=== PATIENT | female | born 1955 | race Caucasian/White ===

== ENCOUNTER 2025-06-26 11:45 | Outpatient (CLI) | payer MEDICARE, OTHER ==
[~2025-06-26 11:45] MED LIST: CHOL4PAC17 PO; HYDR2TAB28 PO; LANTUS SUBCUT
--- NOTE | 2025-06-26 12:39 | RADIOLOGY REPORT ---
CT CT HEAD Indication: HEAD TRAUMA;R/O SUBDURAL HEMATOMA EXAM DATE: 06/26/2025 12:17 PM COMPARISON: MR MRI HEAD on DOS: 11/11/23, CT CT HEAD on DOS: 11/10/23 TECHNIQUE: CT of the head without intravenous contrast. RADIATION DOSE: CTDIvol: 43 mGy, DLP: 700 mGy*cm FINDINGS: There is no intracranial hemorrhage. There is no extra-axial fluid, mass, mass effect or midline shift. The ventricles are midline and normal in size. Basilar cisterns are patent. There are [id number] periventricular and subcortical white matter chronic microvascular ischemic changes. The paranasal sinuses and mastoids are well-pneumatized. Imaged portion of the orbits are unremarkable. Small left frontal scalp hematoma. IMPRESSION: No intracranial hemorrhage or mass effect. [id number] chronic microvascular ischemic changes. Small left frontal scalp hematoma.
== END 2025-06-26 23:59 | disposition home or self-care (01) ==
LOC: RAD 11:45
PROVIDERS: ATTEND Family Medicine
DX: S00.03XA Contusion of scalp, initial encounter (principal); S09.90XA Unspecified injury of head, initial encounter; I99.8 Other disorder of circulatory system; X58.XXXA Exposure to other specified factors, initial encounter; Y93.89 Activity, other specified; Y92.89 Other specified places as the place of occurrence of the external cause; Y99.8 Other external cause status
CPT/HCPCS: 70450